=== PATIENT | male | born 1965 | race Caucasian/White ===

== ENCOUNTER 2017-04-10 20:47 | Emergency (ER) | payer BC ==
[~2017-04-10 20:47] MED LIST: TOPAMAX100 MG
[2017-04-10] MEDS ORDERED: AMLODIPINE BESYL5 MG (21:21)
[2017-04-10] MEDS ORDERED: PRINIVIL5 M1 (21:21)
[2017-04-10] MEDS ORDERED: DIOVAN80 M1 (21:22)
[2017-04-10] MEDS ORDERED: CALCIUM600 M1 PO (21:22)
[2017-04-10] MEDS ORDERED: VITAMIN D31000 UNI3 (21:22)
[2017-04-10] MEDS ORDERED: AUGMENTIN 875-1 EAC2 PO (22:33)
== END 2017-04-10 22:46 ==
LOC: EDMED 20:47
PROC: 0H9GXZZ Drainage of Left Hand Skin, External Approach (ICD-10-PCS; principal; 2017-04-10)
DX: L02.512 Cutaneous abscess of left hand (principal); I10 Essential (primary) hypertension